=== PATIENT | male | born 1995 | race American Indian/Alaskan Native ===

== ENCOUNTER 2018-02-02 10:16 | Emergency (ER) | payer OTHER ==
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
[2018-02-02] MEDS ORDERED: TENIVAC IM ONE (13:10)
[2018-02-02] MEDS ORDERED: TRIPLE ANTIBIOTIC TP ONE ×2 (13:20→13:48)
[2018-02-02 14:01] VITALS: BP 119/80
== END 2018-02-02 14:00 | disposition home or self-care (01) ==
LOC: ED 10:16
DX: S61.401A Unspecified open wound of right hand, initial encounter (principal); Z87.891 Personal history of nicotine dependence; W34.00XA Accidental discharge from unspecified firearms or gun, initial encounter; Y93.89 Activity, other specified; Y92.89 Other specified places as the place of occurrence of the external cause; Y99.8 Other external cause status
CPT/HCPCS: 90471; 90714; 99283; A6250